=== PATIENT | male | born 1955 | race Caucasian/White ===

== ENCOUNTER 2017-10-13 16:01 | Observation (INO) | payer BC, OTHER ==
[~2017-10-13] VITALS: Ht 175.3 cm; Wt 83.1 kg
[~2017-10-13 16:01] MED LIST: CEPH500C PO; DRV65 PO; SULF800T23 PO
[2017-10-13] MEDS ORDERED: ASPIRIN 81 MG CHEW PO STA (16:24)
--- NOTE | 2017-10-13 16:48 | EMERGENCY ROOM VISIT NOTE ---
History Report prepared by Renetta: Angela Webber Under the Supervision of: Dr. Roman Merlos M.D. First contact with patient: 16:05 Chief Complaint: CHEST PAIN Stated Complaint: CHEST PAIN,FLU SYMPTOMS History of Present Illness The patient is a 62 year old male who presents to the Emergency Room with complaints of an episode of chest pain around 45 minutes ago. The patient has been feeling sick for 3 days with flu symptoms. He has had a nonproductive cough , joint pain, fatigue, and diaphoresis. Last night he had fever and chills. He scheduled an appointment with his PCP for today. On his way to the appointment, he developed chest pain and jaw pain. He decided to come to the ED instead. He describes the chest pain as burning. He rates his discomfort as a 6/10 at its worst. The worst pain lasted for 5-7 minutes and the chest pain resolved on its own after 15 minutes. The patient has been getting heartburn recently, but states that the pain today was worse. He had nausea and diaphoresis with the pain, but no SOB, shoulder pain, or arm pain. He denies any increased SOB or chest pain with exertion recently. He denies any sore throat, stuffy nose, diarrhea, or vomiting. He denies any history of diabetes, high cholesterol, or hypertension. He denies any family history of heart disease. He does not smoke. He has not had any tick bites recently, but notes that his sons have had lyme disease. He had a stress test a couple years ago which went well. He has seen a doctor for his heartburn and was started on a medication which he has only been taking as needed. The medication seems to help. He works as a amor. He has been taking some aspirin for his joint pain. He denies any sick contacts. Source of History: patient Onset: 45 minutes ago Position: chest Symptom Intensity: 6/10 Quality: burning Timing: other (episodic) Associated Symptoms: + fevers, + chills, + diaphoresis, + cough, + nausea, + fatigue, + rash, No sorethroat, No SOB, No vomiting, No diarrhea Review of Systems See HPI for pertinent positives & negatives. A total of 10 systems reviewed and were otherwise negative. Past Medical & Surgical Medical Problems: (1) [place]' lung (2) GERD (gastroesophageal reflux disease) (3) Tibia fracture Surgical Problems: (1) History of dental surgery Family History Cancer Social History Smoking Status: Never Smoker Marital Status: Occupation Status: employed Current/Historical Medications Scheduled Omeprazole (Prilosec), 40 MG PO DAILY Scheduled PRN Aspirin (Aspirin), 1 TAB PO DAILY PRN for Pain Allergies Coded Allergies: No Known Allergies (Unverified , NONE, 03/19/09) Physical Exam Vital Signs Date Time Temp Pulse Resp B/P (MAP) Pulse Ox O2 Delivery O2 Flow Rate FiO2 10/13/17 17:28 74 21 116/71 94 Room Air 10/13/17 16:34 77 10/13/17 16:06 36.7 88 20 111/73 97 Room Air Physical Exam GENERAL: Patient is in no acute distress. HEENT: No acute trauma, normocephalic atraumatic, mucous membranes moist, no nasal congestion, no scleral icterus. No throat erythema or exudate. NECK: No stridor, no adenopathy, no meningismus, trachea is midline. LUNGS: Clear to auscultation bilaterally, no wheeze, no rhonchi, breath sounds equal. HEART: Without murmurs gallops or rubs, regular rate and rhythm. ABDOMEN: Soft, nontender, bowel sounds positive, no hernias, no peritonitis. EXTREMITIES: No cyanosis or edema, full range of motion of all the joints without pain or difficulty, no signs for acute trauma. NEUROLOGIC: Oriented x 3, no acute motor or sensory deficits, no focal weakness. SKIN: No rash, no jaundice, no diaphoresis. Medical Decision & Procedures ER Provider Diagnostic Interpretation: X-ray results as stated below per interpretation by me and the radiologist: SINGLE VIEW CHEST CLINICAL HISTORY: Atypical chest pain. FINDINGS: An AP, portable, upright chest radiograph is obtained. No prior studies are available for comparison at the time of dictation. The cardiomediastinal silhouette is unremarkable. The lungs and pleural spaces are clear. No pneumothorax is seen. The bony thorax is grossly intact. IMPRESSION: No active disease in the chest. Electronically signed by: Roman Boyle M.D. 10/13/2017 5:03 PM Dictated Date/Time: 10/13/2017 5:03 PM Laboratory Results 10/13/17 16:40 10/13/17 16:40 Test 10/13/17 16:30 10/13/17 16:40 10/13/17 16:44 Influenza Type A (RT-PCR) Neg for Influ A (NEG) Influenza Type B (RT-PCR) Neg for Influ B (NEG) Red Blood Count 5.14 M/uL (4.7-6.1) Mean Corpuscular Volume 90.7 fL (80-100) Mean Corpuscular Hemoglobin 33.1 pg (25-34) Mean Corpuscular Hemoglobin Concent 36.5 g/dl (32-36) RDW Standard Deviation 41.2 fL (36.4-46.3) RDW Coefficient of Variation 12.3 % (11.5-14.5) Mean Platelet Volume 9.1 fL (7.4-10.4) Prothrombin Time 10.1 SECONDS (9.0-12.0) Prothromb Time International Ratio 1.0 (0.9-1.1) Activated Partial Thromboplast Time 28.9 SECONDS (21.0-31.0) Partial Thromboplastin Ratio 1.1 Anion Gap 7.0 mmol/L (3-11) Est Creatinine Clear Calc Drug Dose 55.3 ml/min Estimated GFR () 61.8 Estimated GFR (Non- 53.3 BUN/Creatinine Ratio 13.1 (10-20) Calcium Level 9.2 mg/dl (8.5-10.1) Total Bilirubin 1.1 mg/dl (0.2-1) Aspartate Amino Transf (AST/SGOT) 61 U/L (15-37) Alanine Aminotransferase (ALT/SGPT) 87 U/L (12-78) Alkaline Phosphatase 86 U/L (45-117) Total Protein 9.2 gm/dl (6.4-8.2) Albumin 4.2 gm/dl (3.4-5.0) Globulin 5.0 gm/dl (2.5-4.0) Albumin/Globulin Ratio 0.8 (0.9-2) Lipase 145 U/L (73-393) Lyme Disease IgG Antibody NEG (NEG) Lyme Disease IgM Antibody NEG (NEG) Monoscreen NEG (NEG) Bedside Troponin I < 0.030 ng/ml (0-0.045) Laboratory results reviewed by me. Medications Administered Medications (Trade) Dose Ordered Sig/Kenney Route Start Time Stop Time Status Last Admin Dose Admin Aspirin (Aspirin Chew) 324 mg NOW STAT PO 10/13/17 16:24 10/13/17 16:28 DC 10/13/17 16:24 324 MG ECG Per My Interpretation Indication: chest pain Rate (beats per minute): 62 Rhythm: normal sinus Findings: no acute ischemic change, other (no ST elevation, no PVC) ED Course 1614: The patient was evaluated in room A12B. A complete history and physical exam was performed. 1624: Aspirin 324 mg PO. 1726: I discussed the patient's case with Dayanna Mitchell cardiology. He recommends patient be kept in the hospital overnight for a stress test in the morning. Patient is to be NPO after midnight. 1731: Upon reexamination the patient is resting comfortably. I discussed results and treatment plan with the patient. He verbalizes agreement and understanding. The patient will be evaluated for further management. 1734: I discussed the patient's case with JOCELYN Delgado hospitalist. The patient will be evaluated for further management. 1823: I reevaluated the patient. I updated him on the results. Medical Decision Differential diagnoses considered include influenza or flu-like illness, pneumonia, lyme disease, anemia, electrolyte imbalance, reflux, pancreatitis, angina, SD. There is no leukocytosis or concerning anemia. No significant electrolyte abnormality or kidney failure. LFTs are slightly elevated. No pancreatitis. [place] testing, flu testing and Lyme disease testing were negative. Chest film does not show pneumonia, CHF or mediastinal widening. EKG shows a normal sinus rhythm, no acute ischemia. Cardiac enzyme testing 1 is not consistent with acute cardiac injury. Patient was given oral aspirin, he has been resting comfortably. He is not having any current chest pain. The patient presents with chest discomfort that went to the jaw. He was a little sweaty and nauseated. I did speak with the linux engineer contract driver, a hospital stay and cardiac workup was recommended. I spoke to the patient, case management has been involved. I spoke with the on-call hospitalist. Medication Reconcilliation Current Medication List: was personally reviewed by me Blood Pressure Screening Patient's blood pressure: Normal blood pressure Blood pressure disposition: Did not require urgent referral Consults Time Called: 172 Consulting Physician: Dayanna Mitchell cardiology Returned Call: [phone] I discussed the patient's case with him. He recommends patient be kept in the hospital overnight for a stress test in the morning. Patient is to be NPO after midnight. Additional Consults: Time Called: 173 Consulted Physician: JOCELYN Delgado hospitalist Returned Call: [phone] Additional Comments: Discussed the patient's case. The patient will be evaluated for further management. Impression Primary Impression: Precordial chest pain Scribe Attestation The scribe's documentation has been prepared under my direction and personally reviewed by me in its entirety. I confirm that the note above accurately reflects all work, treatment, procedures, and medical decision making performed by me. Departure Information Dispostion Being Evaluated By Hospitalist Referrals Ken Avery M.D. (PCP) Patient Instructions My [facility]
[2017-10-13 16:51] LABS: HEMATOCRIT 46.6 % (42-52); MEAN CELL VOLUME 90.7 fL (80-100); MEAN CORPUSCULAR HEMOGLOBIN 33.1 pg (25-34); MEAN CORPUSCULAR HGB CONC 36.5 g/dl (32-36); MEAN PLATELET VOLUME 9.1 fL (7.4-10.4); PLATELET COUNT 295 K/uL (130-400); RED CELL DISTRIBUTION WIDTH CV 12.3 % (11.5-14.5); RED CELL DISTRIBUTION WIDTH SD 41.2 fL (36.4-46.3); WHITE BLOOD COUNT 5.26 K/uL (4.8-10.8)
--- NOTE | 2017-10-13 17:05 | DIAGNOSTIC IMAGING REPORT ---
SINGLE VIEW CHEST CLINICAL HISTORY: Atypical chest pain. FINDINGS: An AP, portable, upright chest radiograph is obtained. No prior studies are available for comparison at the time of dictation. The cardiomediastinal silhouette is unremarkable. The lungs and pleural spaces are clear. No pneumothorax is seen. The bony thorax is grossly intact. IMPRESSION: No active disease in the chest. Electronically signed by: Roman Boyle M.D. 10/13/2017 5:03 PM Dictated Date/Time: 10/13/2017 5:03 PM
[2017-10-13 17:06] LABS: PTT PATIENT 28.9 SECONDS (21.0-31.0)
[2017-10-13 17:07] LABS: ALBUMIN 4.2 gm/dl (3.4-5.0); CALCIUM 9.2 mg/dl (8.5-10.1); CREATININE 1.42 mg/dl (0.60-1.40); POTASSIUM 3.7 mmol/L (3.5-5.1)
[2017-10-13 17:10] LABS: TOTAL PROTEIN 9.2 gm/dl (6.4-8.2)
[2017-10-13 17:59] LABS: INFLUENZA A PCR Neg for Influ A (NEG); INFLUENZA B PCR Neg for Influ B (NEG)
[2017-10-13] MEDS ORDERED: PRLSR20 PO (18:10)
[2017-10-13] MEDS ORDERED: AZITHROMYCIN 250 MG TAB PO SCH (18:15)
[2017-10-13] MEDS ORDERED: ASPECOTC PO (18:15)
[2017-10-13] MEDS ORDERED: ONDANSETRON INJ 2 MG/ML 2 ML VIAL IV PRN (18:15)
[2017-10-13] MEDS ORDERED: OMEP40CA41 PO (18:15)
[2017-10-13] MEDS ORDERED: NITROGLYCERIN 0.4 MG SL PER TAB CHARGE SL PRN (18:15)
[2017-10-13] MEDS ORDERED: ACETAMINOPHEN 325 MG TAB PO PRN (18:15)
[2017-10-13] MEDS ORDERED: AZITHROMYCIN 250 MG TAB PO ONE (18:15)
[2017-10-13] MEDS ORDERED: ACETAMINOPHEN 325 MG TAB PO SCH (18:30)
[2017-10-13] MEDS ORDERED: IV FLUIDS COMPLETED PRN (18:45)
--- NOTE | 2017-10-13 19:17 | History and Physical ---
History & Physical Date & Time of Service: Oct 13, 2017 ~ 17:45 Chief Complaint: Chest Pain,Flu Symptoms Primary Care Physician: Ken Avery M.D. History of Present Illness 62-year-old male who presents the ED with a chief complaint of chest pain and flulike symptoms. Patient reports as flulike symptoms began 4 days ago. He describes generalized body and joint aches. He feels as though he has been running a fever however not take his temperature. He is having episodes of chills and diaphoresis. He reports a nonproductive cough. He is felt generally fatigued. He was unable to work today. Patient made an appointment with his PCP today for the aforementioned symptoms. While in the car on the way to the appointment, patient developed a midsternal burning in his chest. He reports radiation of the discomfort up into his jaw and he also broke out in a sweat. He then came to the ER for further evaluation. Symptoms resolved on their own upon arriving to the ED. He denies any associated shortness of breath , lightheadedness, or nausea. No abdominal pain, vomiting, or diarrhea. He denies any urinary symptoms. Patient reports he has felt increasingly fatigued over the past several weeks. No exertional chest pain or shortness of breath. He was seen by his PCP a few weeks ago for GERD which she reports has been going on for the past couple months. He was started on a PPI. In the ED, patient's EKG does not show any acute ST changes, initial troponin is negative. He is hemodynamically stable. He was given a full dose aspirin. 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) Immunizations History of Tetanus Vaccine?: Yes Tetanus Immunization Date: Apr 25, 2011 Allergies Coded Allergies: No Known Allergies (Unverified , NONE, 03/19/09) Home Medications Scheduled Omeprazole (Prilosec), 40 MG PO DAILY Scheduled PRN Aspirin (Aspirin), 1 TAB PO DAILY PRN for Pain Review of Systems ROS per HPI, all other systems reviewed and negative Physical Exam Vital Signs Date Time Temp Pulse Resp B/P (MAP) Pulse Ox O2 Delivery O2 Flow Rate FiO2 10/13/17 18:38 64 19 99/69 94 Room Air 10/13/17 17:28 74 21 116/71 94 Room Air 10/13/17 16:34 77 10/13/17 16:06 36.7 88 20 111/73 97 Room Air General Appearance: WD/WN, no apparent distress Head: normocephalic, atraumatic Eyes: normal inspection, EOMI, sclerae normal ENT: hearing grossly normal, + pertinent finding (Mucous membranes moist) Neck: supple, no JVD, trachea midline Respiratory/Chest: lungs clear, normal breath sounds, no respiratory distress Cardiovascular: regular rate, rhythm, no edema, normal peripheral pulses Abdomen/GI: normal bowel sounds, non tender, soft, no organomegaly Extremities/Musculoskelatal: normal inspection, no calf tenderness, normal capillary refill Neurologic/Psych: no motor/sensory deficits, alert, normal mood/affect, oriented x 3 Skin: normal color, warm/dry Diagnostics Laboratory Results Results Past 24 Hours Test 10/13/17 16:30 10/13/17 16:40 10/13/17 16:44 Range/Units Influenza Type A (RT-PCR) Neg for Influ A NEG Influenza Type B (RT-PCR) Neg for Influ B NEG White Blood Count 5.26 4.8-10.8 K/uL Red Blood Count 5.14 4.7-6.1 M/uL Hemoglobin 17.0 14.0-18.0 g/dL Hematocrit 46.6 42-52 % Mean Corpuscular Volume 90.7 80-100 fL Mean Corpuscular Hemoglobin 33.1 25-34 pg Mean Corpuscular Hemoglobin Concent 36.5 32-36 g/dl RDW Standard Deviation 41.2 36.4-46.3 fL RDW Coefficient of Variation 12.3 11.5-14.5 % Platelet Count 295 130-400 K/uL Mean Platelet Volume 9.1 7.4-10.4 fL Prothrombin Time 10.1 9.0-12.0 SECONDS Prothromb Time International Ratio 1.0 0.9-1.1 Activated Partial Thromboplast Time 28.9 21.0-31.0 SECONDS Partial Thromboplastin Ratio 1.1 Sodium Level 134 136-145 mmol/L Potassium Level 3.7 3.5-5.1 mmol/L Chloride Level 102 98-107 mmol/L Carbon Dioxide Level 25 21-32 mmol/L Anion Gap 7.0 3-11 mmol/L Blood Urea Nitrogen 19 7-18 mg/dl Creatinine 1.42 0.60-1.40 mg/dl Est Creatinine Clear Calc Drug Dose 55.3 ml/min Estimated GFR () 61.8 Estimated GFR (Non- 53.3 BUN/Creatinine Ratio 13.1 10-20 Random Glucose 107 70-99 mg/dl Calcium Level 9.2 8.5-10.1 mg/dl Total Bilirubin 1.1 0.2-1 mg/dl Aspartate Amino Transf (AST/SGOT) 61 15-37 U/L Alanine Aminotransferase (ALT/SGPT) 87 12-78 U/L Alkaline Phosphatase 86 45-117 U/L Total Protein 9.2 6.4-8.2 gm/dl Albumin 4.2 3.4-5.0 gm/dl Globulin 5.0 2.5-4.0 gm/dl Albumin/Globulin Ratio 0.8 0.9-2 Lipase 145 73-393 U/L Lyme Disease IgG Antibody NEG NEG Lyme Disease IgM Antibody NEG NEG Monoscreen NEG NEG Bedside Troponin I < 0.030 0-0.045 ng/ml Diagnostic Radiology CXR IMPRESSION: No active disease in the chest. Impression Assessment and Plan CHEST PAIN -admit to telemetry -Patient presenting with flulike symptoms 4 days, while in the car today on his way to his PCP appointment developed midsternal burning with radiation into the jaw and associated diaphoresis, symptoms resolve on their own -No CAD risk factors identified, stress test in 2010 was negative for inducible ischemia -Troponin negative, EKG without acute ST changes -Continue to cycle cardiac enzymes, and if negative stress test tomorrow -As needed nitro and EKG with further episodes chest pain -Dr. Jensen notified by ED -Consider GI as etiology of symptoms, recently started on PPI for acid reflux by PCP; continue PPI and consider referral to GI for upper endoscopy FLULIKE ILLNESS, POSSIBLE BRONCHITIS -Influenza swab, Lyme, mono testing all negative -Afebrile, normal WBC -Question viral illness versus bronchitis -Will start patient on Z-Bennie MILD JAN -Creatinine 1.4 (has normal baseline) -Likely prerenal due to acute illness -IVF, follow renal functions, avoid nephrotoxic agents when able MILD LFT ELEVATION -likely due to acute illness -No abdominal pain -Recheck in a.m. DVT PROPHYLAXIS -SQ Lovenox DISPOSITION -The patient will be placed as observation status for now until further work up is complete. Attending Addendum Pt was seen and examined. Agreed with Jacquelyn BANKS, exam, assessment and plan. 62 -year-old male with PMH of GERD presents the ED with a chief complaint of chest pain and flulike symptoms for the past 4 days. Pt said that he is having generalized body ache and chills. He said that today while on his way to see his PCP, he developed a midsternal chest pain associated with diaphoresis. CXR done in the ER showed no active disease in the chest. Pt will be evaluate for the chest pain to r/o ACS. Initial troponin in the ER negative. EKG showed no ischemic changes. Will consult cardiology for eval. Echo in am and NPO after midnight if cardio plan to have stress test. Continue monitor in tele. MD Pradeep Resuscitation Status VTE Prophylaxis Will order VTE Prophylaxis: Yes
[2017-10-13] MEDS ORDERED: TRAMADOL HCL 50 MG TAB PO PRN (19:30)
[2017-10-13] MEDS ORDERED: SODIUM CHLORIDE 0.9% 1000ML 1,000 ML IV SCH (19:45)
[2017-10-13 19:52] VITALS: BP 117/75; PULSE 85; TEMP 36.2; O2SAT 95
[2017-10-13 20:00] VITALS: O2SAT 96
[2017-10-13 20:02] VITALS: BP 117/75; PULSE 85; TEMP 36.2; O2SAT 96; Ht 175.3 cm; Wt 83.1 kg
[2017-10-13] MEDS: ENOXAPARIN 40 MG/0.4 ML SYR SC SCH (21:31)
[2017-10-13 23:50] VITALS: BP 116/65; PULSE 72; TEMP 38; O2SAT 95
[2017-10-14] MEDS: ACETAMINOPHEN 325 MG TAB PO PRN ×2 (00:25→20:49)
[2017-10-14 04:20] LABS: HEMATOCRIT 38.5 % (42-52); HEMOGLOBIN 13.4 g/dL (14.0-18.0); MEAN CELL VOLUME 90.6 fL (80-100); MEAN CORPUSCULAR HEMOGLOBIN 31.5 pg (25-34); MEAN CORPUSCULAR HGB CONC 34.8 g/dl (32-36); MEAN PLATELET VOLUME 9.1 fL (7.4-10.4); PLATELET COUNT 252 K/uL (130-400); RED CELL DISTRIBUTION WIDTH CV 12.3 % (11.5-14.5); WHITE BLOOD COUNT 4.46 K/uL (4.8-10.8)
[2017-10-14 04:39] LABS: ALT/SGPT 58 U/L (12-78); AST/SGOT 38 U/L (15-37); BLOOD UREA NITROGEN 20 mg/dl (7-18); CALCIUM 8.3 mg/dl (8.5-10.1); CARBON DIOXIDE 22 mmol/L (21-32); CREATININE 1.14 mg/dl (0.60-1.40); GLUCOSE 105 mg/dl (70-99); POTASSIUM 3.7 mmol/L (3.5-5.1); SODIUM 137 mmol/L (136-145)
[2017-10-14 04:44] LABS: ALKALINE PHOSPHATASE 62 U/L (45-117); CHOLESTEROL 112 mg/dl (0-200); LDL CHOLESTEROL CALCULATED 61 mg/dl; TOTAL PROTEIN 6.7 gm/dl (6.4-8.2)
[2017-10-14 07:00] LABS: HEMOGLOBIN A1C 5.7 % (4.5-5.6)
[2017-10-14 07:15] VITALS: BP 90/44; PULSE 59; TEMP 36.8; O2SAT 97
[2017-10-14] MEDS: ASPIRIN 81 MG ECTAB PO SCH (08:02)
[2017-10-14] MEDS: AZITHROMYCIN 250 MG TAB PO SCH (08:02)
[2017-10-14] MEDS: PANTOprazole SOD 40 MG TAB PO SCH (08:02)
--- NOTE | 2017-10-14 10:55 | Medical Consult ---
Consultation Date of Consultation: October 14, 2017. Attending Physician: Nguyễn Rizvi M.D. Reason for Consultation: Fever History of Present Illness 62-year-old male with history of GERD, Haddad's lung, otherwise good health, was well until approximately 4 days prior to admission when he developed onset of chills, weakness, fatigue, myalgias and arthralgias, then severe substernal chest pain, eventually prompting visit to the emergency room. Patient was found to be febrile and admitted for further management. Cardiac workup has been negative so far, and blood cultures are negative to date. Patient feeling slightly better today. 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 No significant travel history. No known tick bites. Lyme serology negative. Had mild elevation of liver enzymes on admitting labs. Follow-up LFTs are improved. 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) Allergies Coded Allergies: No Known Allergies (Unverified , NONE, 03/19/09) Current Inpatient Medications Current Inpatient Medications Medications (Trade) Dose Ordered Sig/Kenney Route Start Time Stop Time Status Last Admin Dose Admin Enoxaparin Sodium (Lovenox Inj) 40 mg Q24H SC 10/13/17 20:00 11/12/17 19:59 10/13/17 21:31 40 MG Ondansetron HCl (Zofran Inj) 4 mg Q6H PRN IV 10/13/17 18:15 11/12/17 18:14 Nitroglycerin (Nitrostat Tab) 0.4 mg UD PRN SL 10/13/17 18:15 11/12/17 18:14 Aspirin (Ecotrin Tab) 81 mg QAM PO 10/14/17 09:00 11/13/17 08:59 10/14/17 08:02 81 MG Azithromycin (Zithromax Tab) 250 mg QAM PO 10/14/17 09:00 10/17/17 09:01 10/14/17 08:02 250 MG Pantoprazole Sodium (Protonix Tab) 40 mg DAILY PO 10/14/17 09:00 11/13/17 08:59 10/14/17 08:02 40 MG Miscellaneous (Iv Fluids Completed) 1 ea PRN PRN N/A 10/13/17 18:45 10/13/18 18:44 Tramadol HCl (Ultram Tab) 50 mg Q6H PRN PO 10/13/17 19:30 11/12/17 19:29 Acetaminophen (Tylenol Tab) 650 mg Q4H PRN PO 10/14/17 00:00 11/13/17 00:00 10/14/17 00:25 650 MG Review of Systems Constitutional: + fever, + chills, + weakness, + fatigue Eyes: No problem reported ENT: No problem reported Respiratory: No problem reported Cardiovascular: + chest pain Abdomen: No problem reported Musculoskeletal: + joint pain, + muscle pain Genitourinary - Male: No problem reported Neurologic: + weakness Psychiatric: No problem reported Endocrine: + fatigue Hematologic / Lymphatic: No problem reported Integumentary: No problem reported Allergic / Immunologic: No problem reported Physical Exam Date Time Temp Pulse Resp B/P (MAP) Pulse Ox O2 Delivery O2 Flow Rate FiO2 10/14/17 08:00 Room Air 10/14/17 07:15 36.8 59 16 90/44 (59) 97 10/14/17 04:10 Room Air 10/14/17 00:15 Room Air 10/13/17 23:50 38.0 72 18 116/65 (82) 95 Room Air 10/13/17 20:02 36.2 85 18 117/75 96 Room Air 10/13/17 20:00 96 Room Air 10/13/17 19:52 36.2 85 18 117/75 (89) 95 10/13/17 19:03 36.7 64 19 99/69 94 10/13/17 18:38 64 19 99/69 94 Room Air 10/13/17 17:28 74 21 116/71 94 Room Air 10/13/17 16:34 77 10/13/17 16:06 36.7 88 20 111/73 97 Room Air General Appearance: WD/WN, no apparent distress Head: normocephalic, atraumatic Eyes: normal inspection, EOMI, sclerae normal ENT: normal ENT inspection, hearing grossly normal, pharynx normal Neck: supple, no adenopathy, thyroid normal, trachea midline Respiratory/Chest: chest non-tender, lungs clear, normal breath sounds, no respiratory distress Cardiovascular: regular rate, rhythm, no gallop, no murmur Abdomen/GI: normal bowel sounds, non tender, soft, no organomegaly Back: normal inspection, no CVA tenderness Extremities/Musculoskelatal: normal inspection, no calf tenderness, normal capillary refill, non-tender Neurologic/Psych: alert, normal mood/affect, oriented x 3 Skin: normal color, warm/dry, no rash Lymphatic: no adenopathy Laboratory Results Date/Time Source Procedure Growth Status 10/14/17 00:36 Blood Blood Culture Pending Received 10/14/17 00:36 Blood Blood Culture Pending Received Last 24 Hours Test 10/13/17 16:30 10/13/17 16:40 10/13/17 16:44 10/13/17 21:51 Influenza Type A (RT-PCR) Neg for Influ A Influenza Type B (RT-PCR) Neg for Influ B White Blood Count 5.26 K/uL Red Blood Count 5.14 M/uL Hemoglobin 17.0 g/dL Hematocrit 46.6 % Mean Corpuscular Volume 90.7 fL Mean Corpuscular Hemoglobin 33.1 pg Mean Corpuscular Hemoglobin Concent 36.5 g/dl RDW Standard Deviation 41.2 fL RDW Coefficient of Variation 12.3 % Platelet Count 295 K/uL Mean Platelet Volume 9.1 fL Prothrombin Time 10.1 SECONDS Prothromb Time International Ratio 1.0 Activated Partial Thromboplast Time 28.9 SECONDS Partial Thromboplastin Ratio 1.1 Sodium Level 134 mmol/L Potassium Level 3.7 mmol/L Chloride Level 102 mmol/L Carbon Dioxide Level 25 mmol/L Anion Gap 7.0 mmol/L Blood Urea Nitrogen 19 mg/dl Creatinine 1.42 mg/dl Est Creatinine Clear Calc Drug Dose 55.3 ml/min Estimated GFR () 61.8 Estimated GFR (Non- 53.3 BUN/Creatinine Ratio 13.1 Random Glucose 107 mg/dl Calcium Level 9.2 mg/dl Total Bilirubin 1.1 mg/dl Aspartate Amino Transf (AST/SGOT) 61 U/L Alanine Aminotransferase (ALT/SGPT) 87 U/L Alkaline Phosphatase 86 U/L Total Protein 9.2 gm/dl Albumin 4.2 gm/dl Globulin 5.0 gm/dl Albumin/Globulin Ratio 0.8 Lipase 145 U/L Lyme Disease IgG Antibody NEG Lyme Disease IgM Antibody NEG Monoscreen NEG Bedside Troponin I < 0.030 ng/ml Troponin I < 0.015 ng/ml Test 10/14/17 03:50 10/14/17 08:00 White Blood Count 4.46 K/uL Red Blood Count 4.25 M/uL Hemoglobin 13.4 g/dL Hematocrit 38.5 % Mean Corpuscular Volume 90.6 fL Mean Corpuscular Hemoglobin 31.5 pg Mean Corpuscular Hemoglobin Concent 34.8 g/dl RDW Standard Deviation 41.0 fL RDW Coefficient of Variation 12.3 % Platelet Count 252 K/uL Mean Platelet Volume 9.1 fL Sodium Level 137 mmol/L Potassium Level 3.7 mmol/L Chloride Level 108 mmol/L Carbon Dioxide Level 22 mmol/L Anion Gap 7.0 mmol/L Blood Urea Nitrogen 20 mg/dl Creatinine 1.14 mg/dl Est Creatinine Clear Calc Drug Dose 68.9 ml/min Estimated GFR () 80.6 Estimated GFR (Non- 69.5 BUN/Creatinine Ratio 17.6 Random Glucose 105 mg/dl Estimated Average Glucose 117 mg/dl Hemoglobin A1c 5.7 % Calcium Level 8.3 mg/dl Total Bilirubin 0.7 mg/dl Direct Bilirubin 0.2 mg/dl Aspartate Amino Transf (AST/SGOT) 38 U/L Alanine Aminotransferase (ALT/SGPT) 58 U/L Alkaline Phosphatase 62 U/L Troponin I < 0.015 ng/ml Total Protein 6.7 gm/dl Albumin 3.0 gm/dl Triglycerides Level 73 mg/dl Cholesterol Level 112 mg/dl HDL Cholesterol 36 mg/dl LDL Cholesterol, Calculated 61 mg/dl VLDL Cholesterol, Calculated 15 mg/dl Cholesterol/HDL Ratio 3.1 Urine Color DK YELLOW Urine Appearance CLEAR Urine pH 5.0 Urine Specific [place] 1.035 Urine Protein NEG Urine Glucose (UA) NEG Urine Ketones NEG Urine Occult Blood NEG Urine Nitrite POS Urine Bilirubin NEG Urine Urobilinogen NEG Urine Leukocyte Esterase NEG Urine WBC (Auto) 1-5 /hpf Urine RBC (Auto) 0-4 /hpf Urine Hyaline Casts (Auto) 1-5 /lpf Urine Epithelial Cells (Auto) 0-5 /lpf Urine Bacteria (Auto) NEG Patient Name: EVA MONSALVE Unit Number: [id number] Dictated: 10/13/171702 Transcribed: 10/13/171702 EV Printed Date/Time: [~ rep prt dt]/[~ rep prt tm] [~ rep ct labl] - [~ rep ct ivnm] [facility] [place] [address] Dictated: 10/13/171702 Transcribed: 10/13/171702 EV Printed Date/Time: [~ rep prt dt]/[~ rep prt tm] [~ rep ct labl] - [~ rep ct ivnm] [~ rep ct add3]] SINGLE VIEW CHEST CLINICAL HISTORY: Atypical chest pain. FINDINGS: An AP, portable, upright chest radiograph is obtained. No prior studies are available for comparison at the time of dictation. The cardiomediastinal silhouette is unremarkable. The lungs and pleural spaces are clear. No pneumothorax is seen. The bony thorax is grossly intact. IMPRESSION: No active disease in the chest. Electronically signed by: Roman Boyle M.D. 10/13/2017 5:03 PM Dictated Date/Time: 10/13/2017 5:03 PM The status of this report is Signed. Draft = Not yet reviewed or approved by Radiologist. Signed = Reviewed and approved by Radiologist. <AttendingPhy></AttendingPhy> <FamilyPhy>Ken Avery M.D.</FamilyPhy> < PrimaryPhy>Ken Avery M.D.</PrimaryPhy> <UnitNumber>[id number]</ UnitNumber> <VisitNumber>[id number]</VisitNumber> <PatientName>EVA MONSALVE</PatientName> <DateOfBirth>1955</DateOfBirth> <Location>[facility]</ Location> <ServiceDate>10/13/17</ServiceDate> <MNE>ESINDI</MNE> <OrderingPhy> Roman Merlos M.D.</OrderingPhy> <OrderingPhyMNE>f rep ord dr valdivia</ OrderingPhyMNE> <DictatingPhyMNE>f rep dict dr valdivia</DictatingPhyMNE> <CCListMNE> f rep ct bandare</CCListMNE> <AdmittingPhyMNE>f pt admit dr valdivia</AdmittingPhyMNE> < AttendingPhyMNE>f pt attend dr valdivia</AttendingPhyMNE> <ConsultingPhyMNE>f pt consult dr valdivia</ConsultingPhyMNE> <FamilyPhyMNE>f pt fam dr valdivia</FamilyPhyMNE> <OtherPhyMNE>f pt other dr valdivia</OtherPhyMNE> < PrimaryPhyMNE>f pt prim care dr valdivia</PrimaryPhyMNE> <ReferringPhyMNE>f pt referring dr valdivia</ReferringPhyMNE> Assessment & Plan Acute febrile illness with chest pain, myalgias and arthralgias. Large number of potential diagnoses given exposure history. Have started empirically on doxycycline to cover tick-borne pathogens as well as Brucella and leptospirosis. Given potential of more chronic process, would consider auto- immune/vasculitis work up. Appropriate studies/serologies ordered. Will follow.
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
--- NOTE | 2017-10-14 11:21 | EXERCISE STRESS ECHO ---
*NOTICE TO RECEIVING [employer] This information is strictly Confidential and protected under [place] law. [place] law prohibits you from making any further disclosure of this information unless further disclosure is expressly permitted by the written consent of the person to whom it pertains or is authorized by law. A general authorization for the release of medical or other information is not sufficient for this purpose. Hospital accepts no responsibility if the information is made available to any other person, INCLUDING THE PATIENT. Interpretation Summary * Name: EVA MONSALVE Study Date: 10/14/2017 08:29 AM BP: 112/70 mmHg * Patient Location: [facility]\S\N280\S\2 HR: 86 * : 1955 (M/d/yyyy) Gender: Male Height: 69 in * Age: 62 yrs Ethnicity: SC Weight: 182 lb * Ordering Physician: Jacquelyn Paulino * Referring Physician: Self, Referred * Performed By: Coco Bravo RCS * * Reason For Study: Chest Pain * BSA: 2.0 m2 * -- Conclusions -- * Nonischemic exercise stress echocardiogram. * No arrhythmias. * Normal HR and BP response to exercise. * Above average exercise tolerance. * At rest, normal LV chamber size and wall thickness. * Normal LV systolic function, EF 60-65%. * No segmental left ventricular wall motion abnormalities are noted. * Grade I diastolic dysfunction. * Mild aortic valve sclerosis without stenosis. * No pericardial effusion. Procedure Details * ECHOEX, CPT #[id number] * ECHO COLOR FLOW, CPT #[id number] * ECHO DOPPLER, CPT #[id number] Left Ventricle * The left ventricle is normal in size. * There is normal left ventricular wall thickness. * Ejection Fraction = 60-65%. * No segmental left ventricular wall motion abnormalities are noted. * Left ventricular systolic function is normal. * Resting wall motion: Normal. Stress wall motion: Appropriate increase in Left ventricular systolic function and decrease in cavity size. No stress induced segmental wall motion abnormalities. Right Ventricle * The right ventricular cavity size is normal (basal dimension <4.2 cm in right ventricular apical 4-chamber view). * The right ventricular systolic function is normal as assessed by tricuspid annular plane systolic excursion (TAPSE) (normal >1.5 cm). Atria * The left atrium is mildly dilated. * Right atrial size is normal. * No ASD detected; PFO is not assessed. Mitral Valve * The mitral valve is normal in structure and function. Tricuspid Valve * The tricuspid valve is normal in structure and function. Aortic Valve * The aortic valve is trileaflet. * The aortic valve is tricuspid. The leaflet thickness if normal. There is no aortic stenosis, and no significant insufficiency. * No hemodynamically significant valvular aortic stenosis. * There is no significant aortic regurgitation. Pulmonic Valve * The pulmonary valve is not well seen, but the Doppler examination is normal without significant regurgitation or stenosis. Great Vessels * The aortic root and proximal ascending aorta are normal sized. Pericardium * There is no pericardial effusion. Stress Parameters * Normal baseline electrocardiogram. * The stress ECG response was normal * No arrhythmia were noted with stress. * The stress portion of this study was personally supervised by the undersigned interpreting physician. * Rest heart rate was '86' BPM. * Rest blood pressure was '112/70' * Maximum heart rate achieved was 162 bpm. * Maximum heart rate was 101 % of maximum age-predicted heart rate. * Maximum blood pressure was '143/80' * Total exercise time was '10:02' * Maximum exercise MET level achieved was '11.8' METS * Maximum treadmill speed was '4.2' miles per hour. * Maximum treadmill elevation was '16'% grade. * Exercise was terminated due to 'fatigue after achieving target heart rate' * Normal blood pressure response to exercise. Left Ventricular Diastolic Function * Grade I diastolic dysfunction, (abnormal relaxation pattern). MMode 2D Measurements and Calculations IVSd 1.0 cm IVSs 1.1 cm LVIDd 4.5 cm LVIDs 2.8 cm LVPWd 0.99 cm LVPWs 1.3 cm IVS/LVPW 1.0 FS 37.5 % EDV(Teich) 93.8 ml ESV(Teich) 30.3 ml EF(Teich) 67.7 % EDV(cubed) 92.8 ml ESV(cubed) 22.6 ml EF(cubed) 75.6 % % IVS thick 11.4 % % LVPW thick 27.7 % LV mass(C)d 156.6 grams LV mass(C)dI 78.9 grams/m\S\2 LV mass(C)s 101.3 grams LV mass(C)sI 51.0 grams/m\S\2 SV(Teich) 63.5 ml SI(Teich) 32.0 ml/m\S\2 SV(cubed) 70.2 ml SI(cubed) 35.4 ml/m\S\2 Ao root diam 3.9 cm Ao root area 12.1 cm\S\2 ACS 1.7 cm LA dimension 4.2 cm asc Aorta Diam 3.3 cm LA/Ao 1.1 EDV(MOD-sp4) 112.0 ml ESV(MOD-sp4) 48.0 ml EF(MOD-sp4) 57.1 % EDV(MOD-sp2) 104.0 ml ESV(MOD-sp2) 49.0 ml EF(MOD-sp2) 52.9 % SV(MOD-sp4) 64.0 ml SI(MOD-sp4) 32.3 ml/m\S\2 SV(MOD-sp2) 55.0 ml SI(MOD-sp2) 27.7 ml/m\S\2 Doppler Measurements and Calculations MV E max ross 80.8 cm/sec MV A max ross 86.4 cm/sec MV E/A 0.93 MV P1/2t max ross 96.6 cm/sec MV P1/2t 85.2 msec MVA(P1/2t) 2.6 cm\S\2 MV dec slope 332.1 cm/sec\S\2 MV dec time 0.31 sec Ao V2 max 136.1 cm/sec Ao max PG 7.4 mmHg Ao max PG (full) 1.7 mmHg LV V1 max PG 5.7 mmHg LV V1 max 119.5 cm/sec PA V2 max 100.7 cm/sec PA max PG 4.1 mmHg TR max ross 183.0 cm/sec
[2017-10-14 11:53] LABS: HEMATOCRIT 40.7 % (42-52); HEMOGLOBIN 14.2 g/dL (14.0-18.0); MEAN CELL VOLUME 90.8 fL (80-100); MEAN CORPUSCULAR HEMOGLOBIN 31.7 pg (25-34); MEAN CORPUSCULAR HGB CONC 34.9 g/dl (32-36); MEAN PLATELET VOLUME 9.2 fL (7.4-10.4); PLATELET COUNT 259 K/uL (130-400); RED CELL DISTRIBUTION WIDTH CV 12.3 % (11.5-14.5); RED CELL DISTRIBUTION WIDTH SD 41.5 fL (36.4-46.3)
[2017-10-14] MEDS ORDERED: ACET-1047 PO (13:28)
[2017-10-14 15:13] VITALS: BP 97/62; PULSE 66; TEMP 37; O2SAT 95
--- NOTE | 2017-10-14 16:39 | Progress Note ---
Internal Med Progress Note Date of Service: October 14, 2017. Provider Documentation: SUBJECTIVE: Patient reports feeling warm and sweats overnight. Patient had Tmax of 100.4 F. Patient able to do stress test without problems OBJECTIVE: General Appearance: no apparent distress Head: normocephalic, atraumatic Eyes: normal inspection, EOMI ENT: hearing grossly normal Neck: supple, no JVD, trachea midline Respiratory/Chest: lungs clear, normal breath sounds, no respiratory distress Cardiovascular: regular rate, rhythm, no edema, normal peripheral pulses Abdomen/GI: normal bowel sounds, non tender, soft Extremities/Musculoskelatal: normal inspection, no calf tenderness Neurologic/Psych: alert, normal mood/affect, oriented x 3 ASSESSMENT & PLAN: Acute febrile illness with chest pain, myalgias and arthralgias. 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, patient empirically started on doxycycline (in addition to earlier azithromycin in case of upper respiratory process) to cover for possible tick-borne pathogens as well as Brucella and leptospirosis -Blood cultures from 10/14/17 pending results -Influenza negative -Lyme disease labs negative -Anaplasma labs pending -Bartonella labs pending -Q fever labs pending -Rickettsia labs pending -Typhus fever labs pending -Hepatitis C labs pending Auto-immune/vasculitis work up -IKE pending JAN resolving after IV fluids Transaminitis improving Non cardiac chest pain -Patient had Nonischemic exercise stress echocardiogram -Patient can be transferred off telemetry service DVT PROPHYLAXIS -SQ Lovenox Vital Signs: Date Time Temp Pulse Resp B/P (MAP) Pulse Ox O2 Delivery O2 Flow Rate FiO2 10/14/17 16:00 Room Air 10/14/17 15:13 37.0 66 20 97/62 (74) 95 Room Air 10/14/17 12:00 Room Air 10/14/17 08:00 Room Air 10/14/17 07:15 36.8 59 16 90/44 (59) 97 10/14/17 04:10 Room Air 10/14/17 00:15 Room Air 10/13/17 23:50 38.0 72 18 116/65 (82) 95 Room Air 10/13/17 20:02 36.2 85 18 117/75 96 Room Air 10/13/17 20:00 96 Room Air 10/13/17 19:52 36.2 85 18 117/75 (89) 95 10/13/17 19:03 36.7 64 19 99/69 94 10/13/17 18:38 64 19 99/69 94 Room Air 10/13/17 17:28 74 21 116/71 94 Room Air Lab Results: Results Past 24 Hours Test 10/13/17 21:51 10/14/17 03:50 10/14/17 08:00 10/14/17 11:29 Range/Units Troponin I < 0.015 < 0.015 0-0.045 ng/ml White Blood Count 4.46 4.90 4.8-10.8 K/uL Red Blood Count 4.25 4.48 4.7-6.1 M/uL Hemoglobin 13.4 14.2 14.0-18.0 g/dL Hematocrit 38.5 40.7 42-52 % Mean Corpuscular Volume 90.6 90.8 80-100 fL Mean Corpuscular Hemoglobin 31.5 31.7 25-34 pg Mean Corpuscular Hemoglobin Concent 34.8 34.9 32-36 g/dl RDW Standard Deviation 41.0 41.5 36.4-46.3 fL RDW Coefficient of Variation 12.3 12.3 11.5-14.5 % Platelet Count 252 259 130-400 K/uL Mean Platelet Volume 9.1 9.2 7.4-10.4 fL Sodium Level 137 136-145 mmol/L Potassium Level 3.7 3.5-5.1 mmol/L Chloride Level 108 98-107 mmol/L Carbon Dioxide Level 22 21-32 mmol/L Anion Gap 7.0 3-11 mmol/L Blood Urea Nitrogen 20 7-18 mg/dl Creatinine 1.14 0.60-1.40 mg/dl Est Creatinine Clear Calc Drug Dose 68.9 ml/min Estimated GFR () 80.6 Estimated GFR (Non- 69.5 BUN/Creatinine Ratio 17.6 10-20 Random Glucose 105 70-99 mg/dl Estimated Average Glucose 117 mg/dl Hemoglobin A1c 5.7 4.5-5.6 % Calcium Level 8.3 8.5-10.1 mg/dl Total Bilirubin 0.7 0.2-1 mg/dl Direct Bilirubin 0.2 0-0.2 mg/dl Aspartate Amino Transf (AST/SGOT) 38 15-37 U/L Alanine Aminotransferase (ALT/SGPT) 58 12-78 U/L Alkaline Phosphatase 62 45-117 U/L Total Protein 6.7 6.4-8.2 gm/dl Albumin 3.0 3.4-5.0 gm/dl Triglycerides Level 73 0-150 mg/dl Cholesterol Level 112 0-200 mg/dl HDL Cholesterol 36 mg/dl LDL Cholesterol, Calculated 61 mg/dl VLDL Cholesterol, Calculated 15 mg/dl Cholesterol/HDL Ratio 3.1 Urine Color DK YELLOW Urine Appearance CLEAR CLEAR Urine pH 5.0 4.5-7.5 Urine Specific [place] 1.035 1.000-1.030 Urine Protein NEG NEG Urine Glucose (UA) NEG NEG Urine Ketones NEG NEG Urine Occult Blood NEG NEG Urine Nitrite POS NEG Urine Bilirubin NEG NEG Urine Urobilinogen NEG NEG Urine Leukocyte Esterase NEG NEG Urine WBC (Auto) 1-5 0-5 /hpf Urine RBC (Auto) 0-4 0-4 /hpf Urine Hyaline Casts (Auto) 1-5 0-5 /lpf Urine Epithelial Cells (Auto) 0-5 0-5 /lpf Urine Bacteria (Auto) NEG NEG Erythrocyte Sedimentation Rate 39 0-14 mm/hr Microbiology Results 10/14/17 Blood Culture, Received Pending 10/14/17 Blood Culture, Received Pending
[2017-10-14] MEDS: DOXYCYCLINE HYCLATE 100 MG CAP PO SCH (20:42)
[2017-10-14] MEDS: ENOXAPARIN 40 MG/0.4 ML SYR SC SCH (20:42)
[2017-10-14 23:54] VITALS: BP 97/61; PULSE 57; TEMP 36.8; O2SAT 96
[2017-10-15 06:52] LABS: BASO % 0.6 %; BASO ABS # 0.03 K/uL (0-0.2); EOS % 1.8 %; EOS ABS # 0.09 K/uL (0-0.5); HEMATOCRIT 38.7 % (42-52); HEMOGLOBIN 13.5 g/dL (14.0-18.0); IG# 0.02 K/uL (0.00-0.02); LYMPH % 17.5 %; LYMPH ABS # 0.88 K/uL (1.2-3.4); MEAN CELL VOLUME 89.8 fL (80-100); MEAN CORPUSCULAR HEMOGLOBIN 31.3 pg (25-34); MEAN CORPUSCULAR HGB CONC 34.9 g/dl (32-36); MEAN PLATELET VOLUME 9.2 fL (7.4-10.4); MONO % 14.5 %; MONO ABS # 0.73 K/uL (0.11-0.59); NEUT % 65.2 %; NEUT ABS # 3.28 K/uL (1.4-6.5); PLATELET COUNT 252 K/uL (130-400); RED CELL DISTRIBUTION WIDTH CV 12.2 % (11.5-14.5); RED CELL DISTRIBUTION WIDTH SD 40.5 fL (36.4-46.3); WHITE BLOOD COUNT 5.03 K/uL (4.8-10.8)
[2017-10-15 07:25] LABS: CALCIUM 8.6 mg/dl (8.5-10.1); CREATININE 0.95 mg/dl (0.60-1.40); POTASSIUM 3.7 mmol/L (3.5-5.1)
[2017-10-15 07:28] LABS: TOTAL PROTEIN 6.9 gm/dl (6.4-8.2)
[2017-10-15 07:41] VITALS: BP 104/53; PULSE 59; TEMP 36.7; O2SAT 94
[2017-10-15] MEDS: DOXYCYCLINE HYCLATE 100 MG CAP PO SCH (08:51)
[2017-10-15] MEDS: AZITHROMYCIN 250 MG TAB PO SCH (08:51)
[2017-10-15] MEDS: PANTOprazole SOD 40 MG TAB PO SCH (08:51)
[2017-10-15] MEDS: ASPIRIN 81 MG ECTAB PO SCH (08:51)
[2017-10-15] MEDS ORDERED: DXY100 PO ×2 (11:10→13:02)
--- NOTE | 2017-10-15 11:19 | Progress Note ---
Internal Med Progress Note Date of Service: October 15, 2017. Provider Documentation: SUBJECTIVE: Patient denies fevers or sweats overnight. He shows medical doctor of bump under the right axilla which could be a a palpable lymph node OBJECTIVE: General Appearance: no apparent distress Head: normocephalic, atraumatic Eyes: normal inspection, EOMI ENT: hearing grossly normal Neck: supple, no JVD, trachea midline Respiratory/Chest: lungs clear, normal breath sounds, no respiratory distress Cardiovascular: regular rate, rhythm, no edema, normal peripheral pulses Abdomen/GI: normal bowel sounds, non tender, soft Extremities/Musculoskelatal: reddish bump under the right axilla which could be a a palpable lymph node Neurologic/Psych: alert, normal mood/affect, oriented x 3 ASSESSMENT & PLAN: Hospital Course and Discharge Instructions Acute febrile illness with chest pain, myalgias and arthralgias. -Patient was evaluated by infectious disease service Dr. Worrell and given history of animal exposures [place] the farm, patient empirically started on doxycycline (in addition to earlier azithromycin in case of upper respiratory process) to cover for possible tick-borne pathogens as well as Brucella and leptospirosis -Blood cultures from 10/14/17 are negative -Influenza negative -Lyme disease labs negative -Anaplasma labs pending -Bartonella labs pending -Q fever labs pending -Rickettsia labs pending -Typhus fever labs pending -Hepatitis C labs negative Auto-immune/vasculitis work up -IKE pending JAN resolving after IV fluids Transaminitis resolved Non cardiac chest pain -Patient had Nonischemic exercise stress echocardiogram Discharge Instructions Since being started on oral antibiotics, patient has been afebrile. Patient's blood cultures are negative but there are still reference labs that are pending full results. Patient is eager to go home and will be discharged with 10 days of doxycycline. Patient should have close primary care follow up. He may have had a lymph node of the left axilla that should be re-evaluated by the primary care doctor: 10/17/2017 1:00 PM Ken Avery MD [facility] 10/21/2017 3:00 PM Ken Avery MD [facility] If patient develops high fevers, vomiting, severe diarrhea, severe headache, patient should return to the emergency room immediately Vital Signs: Date Time Temp Pulse Resp B/P (MAP) Pulse Ox O2 Delivery O2 Flow Rate FiO2 10/15/17 08:00 Room Air 10/15/17 07:41 36.7 59 16 104/53 (70) 94 10/15/17 00:00 Room Air 10/14/17 23:54 36.8 57 18 97/61 (73) 96 10/14/17 20:00 Room Air 10/14/17 16:00 Room Air 10/14/17 15:13 37.0 66 20 97/62 (74) 95 Room Air 10/14/17 12:00 Room Air Lab Results: Results Past 24 Hours Test 10/14/17 11:29 10/15/17 06:18 Range/Units White Blood Count 4.90 5.03 4.8-10.8 K/uL Red Blood Count 4.48 4.31 4.7-6.1 M/uL Hemoglobin 14.2 13.5 14.0-18.0 g/dL Hematocrit 40.7 38.7 42-52 % Mean Corpuscular Volume 90.8 89.8 80-100 fL Mean Corpuscular Hemoglobin 31.7 31.3 25-34 pg Mean Corpuscular Hemoglobin Concent 34.9 34.9 32-36 g/dl RDW Standard Deviation 41.5 40.5 36.4-46.3 fL RDW Coefficient of Variation 12.3 12.2 11.5-14.5 % Platelet Count 259 252 130-400 K/uL Mean Platelet Volume 9.2 9.2 7.4-10.4 fL Erythrocyte Sedimentation Rate 39 0-14 mm/hr Hepatitis C Antibody Screen NEG NEG Neutrophils (%) (Auto) 65.2 % Lymphocytes (%) (Auto) 17.5 % Monocytes (%) (Auto) 14.5 % Eosinophils (%) (Auto) 1.8 % Basophils (%) (Auto) 0.6 % Neutrophils # (Auto) 3.28 1.4-6.5 K/uL Lymphocytes # (Auto) 0.88 1.2-3.4 K/uL Monocytes # (Auto) 0.73 0.11-0.59 K/uL Eosinophils # (Auto) 0.09 0-0.5 K/uL Basophils # (Auto) 0.03 0-0.2 K/uL Immature Granulocyte % (Auto) 0.4 % Immature Granulocyte # (Auto) 0.02 0.00-0.02 K/uL Sodium Level 135 136-145 mmol/L Potassium Level 3.7 3.5-5.1 mmol/L Chloride Level 106 98-107 mmol/L Carbon Dioxide Level 22 21-32 mmol/L Anion Gap 7.0 3-11 mmol/L Blood Urea Nitrogen 16 7-18 mg/dl Creatinine 0.95 0.60-1.40 mg/dl Est Creatinine Clear Calc Drug Dose 82.7 ml/min Estimated GFR () 100.4 Estimated GFR (Non- 86.7 BUN/Creatinine Ratio 16.9 10-20 Random Glucose 87 70-99 mg/dl Calcium Level 8.6 8.5-10.1 mg/dl Total Bilirubin 0.7 0.2-1 mg/dl Aspartate Amino Transf (AST/SGOT) 34 15-37 U/L Alanine Aminotransferase (ALT/SGPT) 53 12-78 U/L Alkaline Phosphatase 64 45-117 U/L Total Protein 6.9 6.4-8.2 gm/dl Albumin 3.0 3.4-5.0 gm/dl Globulin 3.9 2.5-4.0 gm/dl Albumin/Globulin Ratio 0.8 0.9-2
--- NOTE | 2017-10-15 11:21 | Discharge Instructions ---
Discharge Instructions Date of Service October 15, 2017. Admission Reason for Admission: Chest Pain Discharge Discharge Diagnosis / Problem: fever, non cardiac chest pain, JAN, transaminitis Discharge Goals Goal(s): Improve disease control Activity Recommendations Activity Limitations: per Instructions/Follow-up section Shower/Bathe: no limitations . Instructions / Follow-Up Instructions / Follow-Up Hospital Course and Discharge Instructions Acute febrile illness with chest pain, myalgias and arthralgias. -Patient was evaluated by infectious disease service Dr. Worrell and given history of animal exposures [place] the farm, patient empirically started on doxycycline (in addition to earlier azithromycin in case of upper respiratory process) to cover for possible tick-borne pathogens as well as Brucella and leptospirosis -Blood cultures from 10/14/17 are negative -Influenza negative -Lyme disease labs negative -Anaplasma labs pending -Bartonella labs pending -Q fever labs pending -Rickettsia labs pending -Typhus fever labs pending -Hepatitis C labs negative Auto-immune/vasculitis work up -IKE pending JAN resolving after IV fluids Transaminitis resolved Non cardiac chest pain -Patient had Nonischemic exercise stress echocardiogram Discharge Instructions Since being started on oral antibiotics, patient has been afebrile. Patient's blood cultures are negative but there are still reference labs that are pending full results. Patient is eager to go home and will be discharged with 10 days of doxycycline. Patient should have close primary care follow up. He may have had a lymph node of the left axilla that should be re-evaluated by the primary care doctor: 10/17/2017 1:00 PM Ken Avery MD [facility] 10/21/2017 3:00 PM Ken Avery MD [facility] If patient develops high fevers, vomiting, severe diarrhea, severe headache, patient should return to the emergency room immediately Current Hospital Diet Patient's current hospital diet: AHA Diet (Heart Healthy) Discharge Diet Recommended Diet: AHA Diet (Heart Healthy) Pending Studies Studies pending at discharge: no Laboratory Results 10/15/17 06:18 Red Blood Count 4.31, Mean Corpuscular Volume 89.8, Mean Corpuscular Hemoglobin 31.3, Mean Corpuscular Hemoglobin Concent 34.9, Mean Platelet Volume 9.2, Neutrophils (%) (Auto) 65.2, Lymphocytes (%) (Auto) 17.5, Monocytes (%) (Auto) 14.5, Eosinophils (%) (Auto) 1.8, Basophils (%) (Auto) 0.6, Neutrophils # (Auto ) 3.28, Lymphocytes # (Auto) 0.88, Monocytes # (Auto) 0.73, Eosinophils # (Auto ) 0.09, Basophils # (Auto) 0.03 10/15/17 06:18 Test 10/13/17 16:30 10/13/17 16:40 10/13/17 16:44 10/14/17 03:50 Influenza Type A (RT-PCR) Neg for Influ A (NEG) Influenza Type B (RT-PCR) Neg for Influ B (NEG) Prothrombin Time 10.1 SECONDS (9.0-12.0) Prothromb Time International Ratio 1.0 (0.9-1.1) Activated Partial Thromboplast Time 28.9 SECONDS (21.0-31.0) Partial Thromboplastin Ratio 1.1 Lipase 145 U/L (73-393) Lyme Disease IgG Antibody NEG (NEG) Lyme Disease IgM Antibody NEG (NEG) Monoscreen NEG (NEG) Bedside Troponin I < 0.030 ng/ml (0-0.045) Estimated Average Glucose 117 mg/dl Hemoglobin A1c 5.7 % (4.5-5.6) Direct Bilirubin 0.2 mg/dl (0-0.2) Troponin I < 0.015 ng/ml (0-0.045) Triglycerides Level 73 mg/dl (0-150) Cholesterol Level 112 mg/dl (0-200) HDL Cholesterol 36 mg/dl LDL Cholesterol, Calculated 61 mg/dl VLDL Cholesterol, Calculated 15 mg/dl Cholesterol/HDL Ratio 3.1 Test 10/14/17 08:00 10/14/17 11:29 10/15/17 06:18 Urine Color DK YELLOW Urine Appearance CLEAR (CLEAR) Urine pH 5.0 (4.5-7.5) Urine Specific [place] 1.035 (1.000-1.030) Urine Protein NEG (NEG) Urine Glucose (UA) NEG (NEG) Urine Ketones NEG (NEG) Urine Occult Blood NEG (NEG) Urine Nitrite POS (NEG) Urine Bilirubin NEG (NEG) Urine Urobilinogen NEG (NEG) Urine Leukocyte Esterase NEG (NEG) Urine WBC (Auto) 1-5 /hpf (0-5) Urine RBC (Auto) 0-4 /hpf (0-4) Urine Hyaline Casts (Auto) 1-5 /lpf (0-5) Urine Epithelial Cells (Auto) 0-5 /lpf (0-5) Urine Bacteria (Auto) NEG (NEG) Erythrocyte Sedimentation Rate 39 mm/hr (0-14) Hepatitis C Antibody Screen NEG (NEG) White Blood Count 5.03 K/uL (4.8-10.8) Red Blood Count 4.31 M/uL (4.7-6.1) Hemoglobin 13.5 g/dL (14.0-18.0) Hematocrit 38.7 % (42-52) Mean Corpuscular Volume 89.8 fL (80-100) Mean Corpuscular Hemoglobin 31.3 pg (25-34) Mean Corpuscular Hemoglobin Concent 34.9 g/dl (32-36) Platelet Count 252 K/uL (130-400) Mean Platelet Volume 9.2 fL (7.4-10.4) Neutrophils (%) (Auto) 65.2 % Lymphocytes (%) (Auto) 17.5 % Monocytes (%) (Auto) 14.5 % Eosinophils (%) (Auto) 1.8 % Basophils (%) (Auto) 0.6 % Neutrophils # (Auto) 3.28 K/uL (1.4-6.5) Lymphocytes # (Auto) 0.88 K/uL (1.2-3.4) Monocytes # (Auto) 0.73 K/uL (0.11-0.59) Eosinophils # (Auto) 0.09 K/uL (0-0.5) Basophils # (Auto) 0.03 K/uL (0-0.2) RDW Standard Deviation 40.5 fL (36.4-46.3) RDW Coefficient of Variation 12.2 % (11.5-14.5) Immature Granulocyte % (Auto) 0.4 % Immature Granulocyte # (Auto) 0.02 K/uL (0.00-0.02) Anion Gap 7.0 mmol/L (3-11) Est Creatinine Clear Calc Drug Dose 82.7 ml/min Estimated GFR () 100.4 Estimated GFR (Non- 86.7 BUN/Creatinine Ratio 16.9 (10-20) Calcium Level 8.6 mg/dl (8.5-10.1) Total Bilirubin 0.7 mg/dl (0.2-1) Aspartate Amino Transf (AST/SGOT) 34 U/L (15-37) Alanine Aminotransferase (ALT/SGPT) 53 U/L (12-78) Alkaline Phosphatase 64 U/L (45-117) Total Protein 6.9 gm/dl (6.4-8.2) Albumin 3.0 gm/dl (3.4-5.0) Globulin 3.9 gm/dl (2.5-4.0) Albumin/Globulin Ratio 0.8 (0.9-2) Date/Time Source Procedure Growth Status 10/14/17 00:36 Blood Blood Culture - Preliminary NO GROWTH TO DATE. Resulted Hemoglobin A1c Test 10/14/17 03:50 Range/Units Estimated Average Glucose 117 mg/dl Hemoglobin A1c 5.7 H 4.5-5.6 % Lipid Panel Test 10/14/17 03:50 Range/Units Triglycerides Level 73 0-150 mg/dl Cholesterol Level 112 0-200 mg/dl HDL Cholesterol 36 mg/dl Cholesterol/HDL Ratio 3.1 LDL Cholesterol, Calculated 61 mg/dl Medical Emergencies . Who to Call and When: Medical Emergencies: If at any time you feel your situation is an emergency, please call 911 immediately. . Non-Emergent Contact Non-Emergency issues call your: Primary Care Provider Call Non-Emergent contact if: you have any medication questions . . "Provider Documentation" section prepared by Nguyễn Rizvi. .
--- NOTE | 2017-10-15 11:24 | Discharge Summary ---
Discharge Summary Date of Service October 15, 2017. Discharge Summary Admission Date: Oct 13, 2017 at 18:10 Discharge Date: October 15, 2017 Discharge Disposition: Home Principal Diagnosis: fever, non cardiac chest pain, JAN, transaminitis Medication Reconciliation New Medications: Acetaminophen (Mapap) 325 Mg Tab 650 MG PO Q4H PRN for Pain or Fever for 7 Days, #56 TAB Doxycycline Hyclate (Doxycycline Hyclate) 100 Mg Cap 100 MG PO BID for 10 Days, #20 CAP Continued Medications: Aspirin (Aspirin) 325 Mg Tab 1 TAB PO DAILY PRN for Pain Omeprazole (Prilosec) 40 Mg Cap 40 MG PO DAILY, CAP Admission Information HPI (per Admitting provider): 62-year-old male who presents the ED with a chief complaint of chest pain and flulike symptoms. Patient reports as flulike symptoms began 4 days ago. He describes generalized body and joint aches. He feels as though he has been running a fever however not take his temperature. He is having episodes of chills and diaphoresis. He reports a nonproductive cough. He is felt generally fatigued. He was unable to work today. Patient made an appointment with his PCP today for the aforementioned symptoms. While in the car on the way to the appointment, patient developed a midsternal burning in his chest. He reports radiation of the discomfort up into his jaw and he also broke out in a sweat. He then came to the ER for further evaluation. Symptoms resolved on their own upon arriving to the ED. He denies any associated shortness of breath , lightheadedness, or nausea. No abdominal pain, vomiting, or diarrhea. He denies any urinary symptoms. Patient reports he has felt increasingly fatigued over the past several weeks. No exertional chest pain or shortness of breath. He was seen by his PCP a few weeks ago for GERD which she reports has been going on for the past couple months. He was started on a PPI. In the ED, patient's EKG does not show any acute ST changes, initial troponin is negative. He is hemodynamically stable. He was given a full dose aspirin. Physical Exam (per Admitting): General Appearance: WD/WN, no apparent distress Head: normocephalic, atraumatic Eyes: normal inspection, EOMI, sclerae normal ENT: hearing grossly normal, + pertinent finding (Mucous membranes moist) Neck: supple, no JVD, trachea midline Respiratory/Chest: lungs clear, normal breath sounds, no respiratory distress Cardiovascular: regular rate, rhythm, no edema, normal peripheral pulses Abdomen/GI: normal bowel sounds, non tender, soft, no organomegaly Extremities/Musculoskelatal: normal inspection, no calf tenderness, normal capillary refill Neurologic/Psych: no motor/sensory deficits, alert, normal mood/affect, oriented x 3 Skin: normal color, warm/dry Hospital Course Hospital Course and Discharge Instructions Acute febrile illness with chest pain, myalgias and arthralgias. -Patient was evaluated by infectious disease service Dr. Worrell and given history of animal exposures [place] the farm, patient empirically started on doxycycline (in addition to earlier azithromycin in case of upper respiratory process) to cover for possible tick-borne pathogens as well as Brucella and leptospirosis -Blood cultures from 10/14/17 are negative -Influenza negative -Lyme disease labs negative -Anaplasma labs pending -Bartonella labs pending -Q fever labs pending -Rickettsia labs pending -Typhus fever labs pending -Hepatitis C labs negative Auto-immune/vasculitis work up -IKE pending JAN resolving after IV fluids Transaminitis resolved Non cardiac chest pain -Patient had Nonischemic exercise stress echocardiogram Discharge Instructions Since being started on oral antibiotics, patient has been afebrile. Patient's blood cultures are negative but there are still reference labs that are pending full results. Patient is eager to go home and will be discharged with 10 days of doxycycline. Patient should have close primary care follow up. He may have had a lymph node of the left axilla that should be re-evaluated by the primary care doctor: 10/17/2017 1:00 PM Ken Avery MD [facility] 10/21/2017 3:00 PM Ken Avery MD [facility] If patient develops high fevers, vomiting, severe diarrhea, severe headache, patient should return to the emergency room immediately Total time spent on discharge = 40 minutes This includes examination of the patient, discharge planning, medication reconciliation, and communication with other providers. Discharge Instructions see above
--- NOTE | 2017-10-15 11:32 | Infectious Disease Progress Nt ---
Progress Note Date of Service October 15, 2017. Subjective Pt evaluation today including: conversation w/ patient, physical exam, chart review, lab review, review of studies, conversation w/ outside sales consultant, review of inpatient medication list Offers no new complaints. Now with possible swollen right axillary node. Remains afebrile. Blood cultures remain negative. All Other Systems: Reviewed and Negative Medications Current Inpatient Medications Medications (Trade) Dose Ordered Sig/Kenney Route Start Time Stop Time Status Last Admin Dose Admin Enoxaparin Sodium (Lovenox Inj) 40 mg Q24H SC 10/13/17 20:00 11/12/17 19:59 10/14/17 20:42 40 MG Ondansetron HCl (Zofran Inj) 4 mg Q6H PRN IV 10/13/17 18:15 11/12/17 18:14 Nitroglycerin (Nitrostat Tab) 0.4 mg UD PRN SL 10/13/17 18:15 11/12/17 18:14 Aspirin (Ecotrin Tab) 81 mg QAM PO 10/14/17 09:00 11/13/17 08:59 10/15/17 08:51 81 MG Azithromycin (Zithromax Tab) 250 mg QAM PO 10/14/17 09:00 10/17/17 09:01 10/15/17 08:51 250 MG Pantoprazole Sodium (Protonix Tab) 40 mg DAILY PO 10/14/17 09:00 11/13/17 08:59 10/15/17 08:51 40 MG Miscellaneous (Iv Fluids Completed) 1 ea PRN PRN N/A 10/13/17 18:45 10/13/18 18:44 Tramadol HCl (Ultram Tab) 50 mg Q6H PRN PO 10/13/17 19:30 11/12/17 19:29 Acetaminophen (Tylenol Tab) 650 mg Q4H PRN PO 10/14/17 00:00 11/13/17 00:00 10/14/17 20:49 650 MG Doxycycline Hyclate (Vibramycin Cap) 100 mg BID PO 10/14/17 21:00 10/28/17 20:59 10/15/17 08:51 100 MG Objective Vital Signs Date Time Temp Pulse Resp B/P (MAP) Pulse Ox O2 Delivery O2 Flow Rate FiO2 10/15/17 08:00 Room Air 10/15/17 07:41 36.7 59 16 104/53 (70) 94 10/15/17 00:00 Room Air 10/14/17 23:54 36.8 57 18 97/61 (73) 96 10/14/17 20:00 Room Air 10/14/17 16:00 Room Air 10/14/17 15:13 37.0 66 20 97/62 (74) 95 Room Air 10/14/17 12:00 Room Air Physical Exam General Appearance: WD/WN, no apparent distress Eyes: normal inspection, EOMI, sclerae normal ENT: normal ENT inspection, hearing grossly normal, pharynx normal Neck: supple, no adenopathy, thyroid normal, trachea midline Respiratory/Chest: chest non-tender, lungs clear, normal breath sounds, no respiratory distress Cardiovascular: regular rate, rhythm, no gallop, no murmur Abdomen: normal bowel sounds, non tender, soft, no organomegaly Extremities: non-tender, no calf tenderness Neurologic/Psychiatric: alert, normal mood/affect, oriented x 3 Skin: normal color, warm/dry, no rash Lymphatic: + axilla node tender (R) Laboratory Results RUN DATE: 10/15/17 [facility] LAB PAGE 1 RUN TIME: 703 Specimen Inquiry PATIENT: EVA MONSALVE ROSA [facility] # : [id number] AGE/SX: 62/M ROOM: N280 REG : 10/13/[address]: Nguyễn Rizvi M.D. : 1955 BED: 2 DIS : STATUS: ADM Sammie TLOC: SPEC #: [id number] [place]: 10/14/17 STATUS: RES REQ #: [id number] RECD: 10/14/[address]: Tevin Evangelista MD SOURCE: BLOOD ENTR: 10/14/17-[address]: Narendra Jensen D.OTammie SPDESC: Yoselin Fernández M.D. Coppes, John C., M.D. Love, Lauren ., Ken Long M.D. ORDERED: BLOOD CULTURE Procedure Result Verified Site BLD CULT Preliminary 10/15/17 NO GROWTH TO DATE. Last 24 Hours Test 10/15/17 06:18 White Blood Count 5.03 K/uL Red Blood Count 4.31 M/uL Hemoglobin 13.5 g/dL Hematocrit 38.7 % Mean Corpuscular Volume 89.8 fL Mean Corpuscular Hemoglobin 31.3 pg Mean Corpuscular Hemoglobin Concent 34.9 g/dl Platelet Count 252 K/uL Mean Platelet Volume 9.2 fL Neutrophils (%) (Auto) 65.2 % Lymphocytes (%) (Auto) 17.5 % Monocytes (%) (Auto) 14.5 % Eosinophils (%) (Auto) 1.8 % Basophils (%) (Auto) 0.6 % Neutrophils # (Auto) 3.28 K/uL Lymphocytes # (Auto) 0.88 K/uL Monocytes # (Auto) 0.73 K/uL Eosinophils # (Auto) 0.09 K/uL Basophils # (Auto) 0.03 K/uL RDW Standard Deviation 40.5 fL RDW Coefficient of Variation 12.2 % Immature Granulocyte % (Auto) 0.4 % Immature Granulocyte # (Auto) 0.02 K/uL Sodium Level 135 mmol/L Potassium Level 3.7 mmol/L Chloride Level 106 mmol/L Carbon Dioxide Level 22 mmol/L Anion Gap 7.0 mmol/L Blood Urea Nitrogen 16 mg/dl Creatinine 0.95 mg/dl Est Creatinine Clear Calc Drug Dose 82.7 ml/min Estimated GFR () 100.4 Estimated GFR (Non- 86.7 BUN/Creatinine Ratio 16.9 Random Glucose 87 mg/dl Calcium Level 8.6 mg/dl Total Bilirubin 0.7 mg/dl Aspartate Amino Transf (AST/SGOT) 34 U/L Alanine Aminotransferase (ALT/SGPT) 53 U/L Alkaline Phosphatase 64 U/L Total Protein 6.9 gm/dl Albumin 3.0 gm/dl Globulin 3.9 gm/dl Albumin/Globulin Ratio 0.8 Assessment and Plan Acute febrile illness with chest pain, myalgias and arthralgias. Large number of potential diagnoses given exposure history as discussed. Would continue patient on doxycycline 100 milligrams b.i.d. for 2 weeks pending results of cultures and serologies.
[2017-10-15 13:15] VITALS: BP 104/53; PULSE 59; TEMP 36.7; O2SAT 94
[2017-10-17 23:05] LABS: ANA SCREEN TC 249X NEGATIVE (NEGATIVE); R. TYPHI IgG AB Not Detected (Not Detected); R. TYPHI IgM AB Not Detected (Not Detected); RMSF IgG AB Not Detected (Not Detected); RMSF IgM AB Not Detected (Not Detected)
== END 2017-10-15 13:40 | disposition home health service (06) ==
LOC: C.EDB 16:03 → C.MED 18:10 → ENRESERV 18:31
PROVIDERS: ADMIT Internal Medicine; ATTEND Hospitalist
DX: R50.9 Fever, unspecified (principal); R07.89 Other chest pain; N17.9 Acute kidney failure, unspecified; R74.0 Nonspecific elevation of levels of transaminase and lactic acid dehydrogenase [LDH]; Z79.82 Long term (current) use of aspirin; Z98.818 Other dental procedure status; J67.0 Farmer's lung; K21.9 Gastro-esophageal reflux disease without esophagitis